=== PATIENT | male | born 1995 | race Caucasian/White ===

== ENCOUNTER 2023-07-12 21:23 | Emergency (ER) | payer OTHER, SELFPAY ==
[2023-07-12 21:24] VITALS: BMI 23.4
[2023-07-12 21:25] VITALS: BP 165/98
--- NOTE | 2023-07-12 22:15 | ED.GENMED ---
History of Present Illness
General
Chief Complaint: Headache
Source: patient
Exam Limitations: none
Time Seen by Provider: 07/12/23 21:42
Travel History
Have you had any contact with someone who has COVID-19?: No
Do you have any symptoms of coronavirus? Fever > 100 degrees, chills, cough, shortness of breath, sore throat, loss of taste or smell, muscle aches, or headache?: No
History of Present Illness
History of Present Illness:
This is a 28 year old male that comes in with c/o headache. States that he has had a headache behind the right eye and around the eye for the past 3 days. States that this started on into Thursday and it was only a 5. Then Yesterday it went
up to a 7 and now he feels the pain is a 10. States that this is the normal pattern for his migraines. States that he feels slightly dizzy with the headache. Denies any fever, chills, chest pain, SOB, abd pain, nausea, vomiting, diarrhea, urinary
burning.
Past History
Past History
ED Past Medical History: GERD, Psychiatric (Depression) and Other (Infantile glaucoma, Migraines)
ED Past Surgical History: Appendectomy
Social History
Tobacco: Non-smoker
Alcohol: None
Personal: Single
Living: with family
Review of Systems
Review of Systems
All Other Systems: ROS reviewed and negative except as documented in HPI and ROS
Constitutional: Reports no symptoms; Denies fever or chills
EENT: Reports no symptoms
Respiratory: Denies cough or trouble breathing
Cardiac: Reports no symptoms; Denies chest pain
ABD/GI: Reports no symptoms; Denies abdominal pain, nausea, vomiting or diarrhea
: Reports no symptoms; Denies dysuria, frequency or urgency
Musculoskeletal: Reports no symptoms
Skin: Reports no symptoms
Neurological: Reports dizzy (Slight) and headache
Psychiatric: Reports no symptoms
Phy Exam
General Physical Exam
General Presentation: no apparent distress
General age: appears stated age
General Skin: warm and dry
General Habitus: normal
General Mental: alert
General Hydration: appears well hydrated
ENT Exam
ENT Exam: TM's normal, pharynx normal and neck supple
Eye Exam
Eye Exam: EOMI
Cardiovascular Exam
Cardiovascular Exam: regular rate/rhythm, no edema, no murmur and normal peripheral pulses
Pulmonary Exam
Pulmonary Exam: lungs clear, no respiratory distress, no rales, chest non tender, no crackles, no rhonchi, no wheezing and no cough
Gastrointestinal Exam
Gastrointestinal Exam: normal bowel sounds, non tender, soft, no organomegaly, no pulsatile mass and non distended
Musculoskeletal Exam
Musculoskeletal Exam: full ROM and no edema
Skin Exam
Skin Exam: normal color, warm/dry, no rash and no petechia
Psychiatric Exam
Psychiatric Exam: normal mood/affect
Course
Orders/Labs/Results
Orders:
Orders
07/12/23 22:14
0.9% Sodium Chloride 1000 ml [Nss] 1,000 ml IV BOLUS
Acetaminophen [Tylenol] 1,000 mg PO NOW STA
Dexamethasone Sod Phosphate [Decadron] 10 mg IV NOW STA
Diphenhydramine [Benadryl] 25 mg IV NOW STA
Ketorolac [Toradol] 30 mg IV NOW STA
07/12/23 22:37
Complete Blood Count/With Diff Urgent
Comprehensive Metabolic Panel Urgent
Abnormal Lab Results
07/12/23
22:37
MCV 78.4 L fL
(80.0-94.0)
MPV 11.4 H fL
(7.4-10.4)
Carbon Dioxide 31 H mmol/L
(22-30)
07/12/23 22:37
07/12/23 22:37
Carbon dioxide slightly elevated.
Vital Signs
Initial and Last Documented VS:
Initial Vital Signs
Temp Pulse Resp BP Pulse Ox
98 F 68 18 165/98 100
07/12/23 21:25 07/12/23 21:25 07/12/23 21:25 07/12/23 21:25 07/12/23 21:25
Last Documented Vital Signs
Temp Pulse Resp BP Pulse Ox
98 F 68 18 165/98 100
07/12/23 21:25 07/12/23 21:25 07/12/23 21:25 07/12/23 21:25 07/12/23 21:25
MDM/Problems Addressed
Differential Diagnosis Includes:
Cluster Migraine, Complicated Migraine
MDM/Problems Addressed:
This is a 28 year old male that comes in with c/o migraine behind and around the right eye. States that this is the normal pattern for his Migraines. Mom states that he has been here before for this.
Will give IV fluids and medication. Will check labs.
Back into see patient. States that he is feeling better and ready to go home. Encouraged patient to increase his water intake daily. Follow up with the family doctor or a Neurologist for further evaluation. Patient can use Tylenol 1000mg every 6
hours and Ibuprofen 600mg every 6 hours for headache pain. Return with any concerns.
Chronic conditions affecting care:
Migraines
Acute Exacerbation and/or Progression of Chronic Illness:
Migraines
*Pulse Oximetry
Patient hypoxic: no
*EKG
Interpreted by ED Provider?: NA
Rate: EKG- N/A
*Credit Department Manager Interpretation
Rate: Credit Department Manager- N/A
*Critical Care Note
Total Time (30-74mins, 75-104mins- exclusive of procedures): Not Applicable
ED Attending Note
-
Portions of this chart may have been created with voice recognition software.� Occasional wrong word or��sound alike� substitutions may have occurred due to the inherent limitations of voice recognition software.
Discharge Plan
Departure
Patient Disposition: Home (Routine Discharge)
Date of Disposition: 07/12/23
Time of Disposition: 23:27
Patient with high blood pressure during this ER visit?: Yes
Condition: Good
Covid-19: Not Applicable
Discharge Problem:
Acute migraine
Instructions: Migraines (DC), BLOOD PRESSURE
Prescriptions:
No Action
No Current Medications
0
Referrals:
Ke Martin MD [Family Provider] - Follow up in 2-3 days
Alfredo Rdz MD [Active] - Call in 1-3 days for appt
Activity Restrictions/Additional Instructions:
As discussed, your blood work is normal. Please increase your water intake to 8-8oz glasses daily. You may use Tylenol 1000mg every 6 hour for pain and alternate with Ibuprofen 600mg every 6 hours with food. Follow up with the family doctor and/or
the Neurologist for further evaluation. IF YOU HAVE INCREASED OR CHANGING HEADACHE PAIN, OR YOU HAVE ANY OTHER CONCERNS PLEASE RETURN TO THE EMERGENCY ROOM.
Interventions
Interventions:
*Risk Screen - Suicide Last Done: 07/12/23 21:25
*Neglect/Abuse Screening Last Done: 07/12/23 21:25
ED- Neurological Assessment Last Done: 07/12/23 22:51
[2023-07-12] MEDS: TYLENOL 1000 MG PO (22:20)
[2023-07-12 22:22] VITALS: BP 143/87
[2023-07-12] MEDS: TORADOL 30 MG IV (22:23)
[2023-07-12] MEDS: DECADRON 10 MG IV (22:24)
[2023-07-12] MEDS: BENADRYL 25 MG IV (22:24)
[2023-07-12] MEDS: NSS 1000 IV (22:25)
[2023-07-12 22:50] LABS: % Basophils 0.5 % (0-2); % Eosinophils 1.9 % (0-6); % Immature Granulocytes 0.4 % (0-0.5); % Monocytes 6.9 % (1.7-9.3); % Neutrophils 64.3 % (42.2-75.2); Absolute Eosinophils 0.2 10^3/uL (0-0.7); Absolute Monocytes 0.5 10^3/uL (0.1-0.6); Hemoglobin 16.3 g/dL (13.0-18.0); Mean Corp Hgb Conc. 35.4 g/dL (33.0-37.0); Mean Corpuscular Hgb 27.8 pg (27.0-31.0); Mean Corpuscular Volume 78.4 fL (80.0-94.0); Mean Platelet Volume 11.4 fL (7.4-10.4); Nucleated Red Blood Cells % 0 % (-); Platelet Count 191 10^3/uL (130-400); Red Blood Cell Count 5.87 10^6/uL (4.70-6.10); Red Cell Dist. Width 12.9 % (11.5-14.5); White Blood Cell Count 7.8 10^3/uL (4.8-10.8)
[2023-07-12 23:00] VITALS: BP 127/67
[2023-07-12 23:09] LABS: ALT (SGPT) 19 U/L (0-50); AST (SGOT) 21 U/L (17-59); Albumin 4.5 g/dl (3.5-5.0); Alkaline Phosphatase 74 U/L (38-126); Blood Urea Nitrogen 11 mg/dl (9-20); Calcium 9.7 mg/dl (8.4-10.2); Carbon Dioxide 31 mmol/L (22-30); Chloride 103 mmol/L (98-107); Estimated Creatinine Clearance > 125 ml/min; Glucose 96 mg/dl (70-99); Sodium 139 mmol/L (135-145); Total Bilirubin 0.9 mg/dl (0.2-1.3); eGFR > 60.00
== END 2023-07-13 00:29 | disposition home or self-care (01) ==
LOC: EMR 21:23
PROVIDERS: Clinical Nurse Specialist Family Health; EMERGENCY PHYSICIAN Student in an Organized Health Care Education/Training Program; FAMILY PHYSICIAN Family Medicine
DX: G43.909 Migraine, unspecified, not intractable, without status migrainosus (principal); R03.0 Elevated blood-pressure reading, without diagnosis of hypertension
CPT/HCPCS: 99284; 96374; 96375 ×2; 96361; 80053; 85025

== ENCOUNTER 2025-01-24 14:01 | Emergency (ER) | payer OTHER, SELFPAY ==
[2025-01-24 14:02] VITALS: BP 139/86
--- NOTE | 2025-01-24 16:02 | ED.GENMED ---
History of Present Illness
General
Chief Complaint: Headache
Source: patient
Exam Limitations: none
Time Seen by Provider: 01/24/25 15:53
History of Present Illness
History of Present Illness:
29yoM with a history of glaucoma as an infant presenting with his mother for evaluation of a headache. Patient reports pain behind his right eye which has been constant for the past 4 days. Pain was gradual in onset and is getting worse each day.
His pain is currently rated as a 7 out of 10 in severity. He denies any associated symptoms. Specifically, he denies any visual changes, nausea, vomiting, fevers, neck stiffness. Patient has been taking ibuprofen and Excedrin without much relief.
He hit his head 1 month ago playing basketball but otherwise denies any trauma. He has had similar headaches over the past 4 years. Pain is always located behind the right eye. This is his third severe episode in the past few years. He has
never seen a neurologist or had any imaging before.
Past History
Past History
ED Past Medical History: GERD, Psychiatric (Depression) and Other (Infantile glaucoma, Migraines)
ED Past Surgical History: Appendectomy
Social History
Tobacco: Non-smoker
Alcohol: None
Personal: Single
Living: with family
Phy Exam
General Physical Exam
General Presentation: well appearing and no apparent distress
General Skin: warm and dry
General Habitus: normal
General Mental: alert
ENT Exam
ENT Exam: TM's normal, neck supple and normocephalic
Additional ENT: No meningismus
Eye Exam
Eye Exam: PERRL, EOMI, conjunctiva normal and other (Pressure in R eye 16-19mmHg, pressure in L eye 17mmHg)
Cardiovascular Exam
Cardiovascular Exam: regular rate/rhythm
Pulmonary Exam
Pulmonary Exam: lungs clear, no respiratory distress, no rales, no crackles, no rhonchi and no wheezing
Neurological Exam
Neurological Exam: alert and other (No focal neuro deficits)
Christine Coma Scale
Eye Opening: Spontaneous
Verbal Response: Oriented
Motor Response: Obeys Commands
GCS Total Score: 15
Skin Exam
Skin Exam: normal color and warm/dry
Psychiatric Exam
Psychiatric Exam: normal mood/affect
Course
Orders/Labs/Results
Orders:
Orders
01/24/25 16:01
CT Head W/o Iv Contrast Urgent
Comment:
Reason For Exam: acute headache
CT Orbits W/o Iv Contrast Urgent
Comment:
Reason For Exam: pain behind R eye
0.9% Sodium Chloride 1000 ml [Nss] 1,000 ml IV BOLUS
Dexamethasone Sod Phosphate [Decadron] 10 mg IV NOW STA
Diphenhydramine [Benadryl] 25 mg IV NOW STA
Ketorolac [Toradol] 15 mg IV NOW STA
Magnesium Sulfate 2 Gram/50 ml [Magnesium Sulfate] 2 gram in 50 ml IV NOW
Metoclopramide [Reglan] 10 mg IV NOW STA
Vital Signs
Initial and Last Documented VS:
Initial Vital Signs
Temp Pulse Resp BP Pulse Ox
98.2 F 71 18 139/86 98
01/24/25 14:02 01/24/25 14:02 01/24/25 14:02 01/24/25 14:02 01/24/25 14:02
Last Documented Vital Signs
Temp Pulse Resp BP Pulse Ox
98.2 F 74 16 94/55 99
01/24/25 14:02 01/24/25 17:40 01/24/25 17:40 01/24/25 17:40 01/24/25 17:40
MDM/Problems Addressed
Differential Diagnosis Includes:
29yoM here with a headache x 4 days that is located behind the R eye. Similar headaches in the past. Has never seen a neurologist before. VSS. He is well appearing in no distress. Pupillary exam is normal. Intraocular pressures normal. No focal
neuro deficits or meningismus noted. Differential diagnosis includes but is not limited to: cluster headache, migraine, sinusitis
Initial ED plan: Check CT head and orbits. IV migraine cocktail and reassess.
*Pulse Oximetry
SaO2: 98
Oxygen Mode of Delivery: Room air
Patient hypoxic: no (98%)
*Critical Care Note
Total Time (30-74mins, 75-104mins- exclusive of procedures): Not Applicable
Update Note
Update Note:
CT imaging shows findings suggestive of R maxillary sinusitis. No acute intracranial abnormalities. Patient feeling significantly improved on reassessment and headache has resolved. He does report having increased nasal congestion over the past
week. He was started on a course of Augmentin to cover for sinusitis and advised to use Flonase nasal spray. Advised f/u with PCP and neurology. ED return precautions reviewed. Patient and mother in agreement with plan and he was discharged in
stable condition.
ED Attending Note
-
Portions of this chart may have been created with voice recognition software.� Occasional wrong word or��sound alike� substitutions may have occurred due to the inherent limitations of voice recognition software.
Discharge Plan
Departure
Patient Disposition: Home (Routine Discharge)
Date of Disposition: 01/24/25
Time of Disposition: 17:51
Patient with high blood pressure during this ER visit?: No
Discharge Problem:
Acute nonintractable headache, Acute sinusitis
Instructions: Headache, Adult (DC)
Prescriptions:
New
amoxicillin-pot clavulanate 875-125 mg tablet
1 tab PO BID Qty: 14 0RF
Referrals:
Alfredo Rdz MD [Active, Neurology]
UNKNOWN - PT DOES,NOT KNOW [Family Provider]
Stand Alone Forms: Return to Work
Activity Restrictions/Additional Instructions:
Take antibiotics as prescribed. Use Flonase nasal spray daily for nasal congestion. You may take ibuprofen or Excedrin as needed for headaches.
Please call tomorrow to schedule a follow-up with your family doctor and neurology. Return to the ER with any new or worsening symptoms
Interventions
Interventions:
*Risk Screen - Suicide Last Done: 01/24/25 14:02
*General Assessment Last Done: 01/24/25 17:13
*Neglect/Abuse Screening Last Done: 01/24/25 17:11
*ED- Fall Risk Assessment Last Done: 01/24/25 17:11
*ED COVID-19 Vaccine History Last Done: 01/24/25 17:11
*Nursing Disposition Last Done: 01/24/25 18:22
ED- Neurological Assessment Last Done: 01/24/25 16:30
Discharge Date and Time
Discharge Date/Time: 01/24/25 18:23
Print Language: WELSH
--- NOTE | 2025-01-24 16:04 | EDRN ---
Cristobal LO in room w/ pt w/ tonometer at this time.
[2025-01-24] MEDS: TORADOL 15 MG IV (16:41)
[2025-01-24] MEDS: BENADRYL 25 MG IV (16:41)
[2025-01-24] MEDS: REGLAN 10 MG IV (16:41)
[2025-01-24] MEDS: MAGNESIUM SULFATE 50 IV (16:42)
[2025-01-24] MEDS: DECADRON 10 MG IV (16:42)
[2025-01-24] MEDS: NSS 1000 IV (16:42)
[2025-01-24 17:11] VITALS: BMI 20.7
[2025-01-24 17:13] VITALS: BP 99/55
[2025-01-24 17:40] VITALS: BP 94/55
== END 2025-01-24 18:23 | disposition home or self-care (01) ==
LOC: EMR 14:01
PROVIDERS: EMERGENCY PHYSICIAN Student in an Organized Health Care Education/Training Program
DX: J01.90 Acute sinusitis, unspecified (principal); R51.9 Headache, unspecified
CPT/HCPCS: 96374; 96375; 96361; 99284; 70450; 70480